=== PATIENT | male | born 1960 | race Caucasian/White ===

== ENCOUNTER 2020-06-23 18:42 | Inpatient (IN) | payer OTHER ==
[~2020-06-23 18:42] MED LIST: ONDANSETRON HCL INJ/PF 4 MG/2 ML SDV ONE; ROCURONIUM BROMIDE INJ 50 MG/5 ML VIAL IV ONE; SUCCINYLCHOLINE CHLORIDE INJ 200 MG/10 ML VIAL ONE
[2020-06-23] MEDS ORDERED: MORPHINE SULFATE 10 MG/ML INJ IV ONE (20:11)
[2020-06-23] MEDS ORDERED: NORMAL SALINE 1000 ML 1,000 ML IV ONE (20:11)
[2020-06-23] MEDS ORDERED: ONDANSETRON HCL INJ/PF 4 MG/2 ML SDV IV ONE (20:11)
--- NOTE | 2020-06-23 20:14 | ER Document Report ---
ED GI/ - General Chief Complaint: Vomiting Stated Complaint: ABDOMINAL PAIN/CHILLS/VOMITING/BACK PAIN Time Seen by Provider: 06/23/20 19:57 Mode of Arrival: Medic Information source: Patient Notes: Patient presents complaint of right lateral side pain. Patient states the pain radiates into the abdomen. Patient states that he has had nausea and vomiting times at least 6 episodes today. No diarrhea. Patient denies any fever. Patient denies any cough or urinary symptoms. Patient denies any significant medical history other does not go to a doctor regularly. - HPI Patient complains to provider of: Vomiting, Other - Lateral side pain. No: Diar alessandra, Dysuria, Flank pain, Testicular pain Onset: Yesterday Timing/Duration: Gradual, Worse Quality of pain: Other - Tight pressure Pain Level: 5 Location: Other - Lateral side Associated symptoms: Nausea, Vomiting. denies: Chest pain, Constipation, Diarrhea, Dysuria, Fever, Urinary hesitancy, Urinary frequency, Urinary retention, Urinary urgency Exacerbated by: Movement, Deep breathing Relieved by: Denies Similar symptoms previously: No Recently seen / treated by doctor: No - Related Data Allergies/Adverse Reactions: No Known Allergies Allergy (Unverified 06/23/20 20:59) Past Medical History - General Information source: Patient - Social History Smoking Status: Current Every Day Smoker Frequency of alcohol use: None Drug Abuse: None Occupation: None Family History: Reviewed & Not Pertinent Patient has homicidal ideation: No - Medical History Medical History: Negative Surgical Hx: Negative Review of Systems - Review of Systems Constitutional: No symptoms reported. denies: Fever EENT: No symptoms reported Cardiovascular: No symptoms reported. denies: Chest pain Respiratory: Hurts to breathe. denies: Cough Gastrointestinal: Abdominal pain - Right lateral side pain that radiates into abdomen, Nausea, Vomiting. denies: Diarrhea Genitourinary: No symptoms reported. denies: Dysuria, Flank pain, Hematuria Male Genitourinary: No symptoms reported Musculoskeletal: Back pain - Right lateral side tenderness Skin: No symptoms reported Hematologic/Lymphatic: No symptoms reported Neurological/Psychological: No symptoms reported Physical Exam - Vital signs Vitals: Temp Pulse Resp BP Pulse Ox 97.5 F 109 H 20 131/80 H 94 06/23/20 18:51 06/23/20 18:51 06/23/20 18:51 06/23/20 18:51 06/23/20 18:51 - Notes Notes: PHYSICAL EXAMINATION: GENERAL: Patient appears comfortable HEAD: Atraumatic, normocephalic. EYES: sclera anicteric, conjunctiva are normal. ENT: nares patent. Moist mucous membranes. NECK: Normal range of motion, supple without lymphadenopathy LUNGS: CTAB and equal. Patient with mild tachypnea. No wheezes rales or rhonchi. HEART: Tachycardia with normal rhythm without murmurs ABDOMEN: Right lateral side tenderness, abdomen soft, normal bowel sounds, no guarding. EXTREMITIES: Normal range of motion, no pitting edema. No cyanosis. BACK: Right lateral side tenderness, no midline tenderness, no step-off or deformity. No CVA tenderness NEUROLOGICAL: Cranial nerves grossly intact. Normal speech. PSYCH: Normal mood, normal affect. SKIN: Warm, Dry, normal turgor, no rashes or lesions noted Course - Re-evaluation Re-evalutation: 06/23/20 22:56 Received call from radiologist reporting that patient has a recently perforated appendix and that the appendix appears to abut the liver, radiologist specifically requests that this finding be reported to the surgeon. Call then placed to surgeon, Dr. Arita regarding patient presentation. Dr Arita states that he will be down to evaluate patient shortly. - Vital Signs Vital signs: Temp Pulse Resp BP Pulse Ox 98.5 F 118 H 20 147/80 H 93 06/24/20 00:05 06/24/20 00:05 06/24/20 00:05 06/24/20 00:05 06/24/20 00:05 - Laboratory Result Diagrams: 06/23/20 20:05 06/23/20 20:05 Laboratory results interpreted by me: 06/23/20 06/23/20 06/23/20 20:05 20:05 20:40 WBC 15.7 H Seg Neuts % (Manual) 92 H Lymphocytes % (Manual) 4 L Abs Neuts (Manual) 14.4 H Glucose 206 H Urine Protein 100 H Urine Ketones TRACE H Urine Blood SMALL H Urine Urobilinogen 2.0 H Ur Leukocyte Esterase LARGE H Labs- All tests 24 hr 06/23/20 06/23/20 06/23/20 20:05 20:05 20:40 WBC 15.7 H RBC 5.18 Hgb 17.0 Hct 50.3 MCV 97 MCH 32.9 MCHC 33.9 RDW 13.5 Plt Count 228 Lymph % (Auto) Not Reportable [place] % (Auto) Not Reportable Eos % (Auto) Not Reportable Baso % (Auto) Not Reportable Absolute Neuts (auto) Not Reportable Absolute Lymphs (auto) Not Reportable Absolute Monos (auto) Not Reportable Absolute Eos (auto) Not Reportable Absolute Basos (auto) Not Reportable Total Counted 100 Seg Neutrophils % Not Reportable Seg Neuts % (Manual) 92 H Lymphocytes % (Manual) 4 L Monocytes % (Manual) 4 Eosinophils % (Manual) 0 Basophils % (Manual) 0 Abs Neuts (Manual) 14.4 H Abs Lymphs (Manual) 0.6 Abs Monocytes (Manual) 0.6 Absolute Eos (Manual) 0.0 Abs Basophils (Manual) 0.0 Platelet Comment ADEQUATE RBC Morph Comment NORMO-CYTIC/CHROMIC Sodium 140.5 Potassium 3.8 Chloride 101 Carbon Dioxide 23 Anion Gap 17 BUN 19 Creatinine 0.95 Est GFR ( Amer) > 60 Est GFR (MDRD) Non-Af > 60 Glucose 206 H Calcium 10.0 Total Bilirubin 1.2 Direct Bilirubin 0.4 Neonat Total Bilirubin Not Reportable Neonat Direct Bilirubin Not Reportable Neonat Indirect Bili Not Reportable AST 31 ALT 27 Alkaline Phosphatase 88 Total Protein 7.8 Albumin 4.9 Lipase 41.8 Urine Color YELLOW Urine Appearance CLOUDY Urine pH 5.0 Ur Specific [place] 1.029 Urine Protein 100 H Urine Glucose (UA) NEGATIVE Urine Ketones TRACE H Urine Blood SMALL H Urine Nitrite NEGATIVE Urine Bilirubin NEGATIVE Urine Urobilinogen 2.0 H Ur Leukocyte Esterase LARGE H Urine WBC (Auto) 130 Urine RBC (Auto) 49 Urine Bacteria (Auto) TRACE Squamous Epi Cells Auto 6 Urine Mucus (Auto) OCC Urine Ascorbic Acid NEGATIVE - Diagnostic Test Radiology reviewed: Reports reviewed Discharge - Discharge Clinical Impression: Appendicitis Qualifiers: Appendicitis type: acute appendicitis Acute appendicitis type: with localized peritonitis Appendicitis gangrene presence: without gangrene Appendicitis perforation presence: with perforation Appendicitis abscess presence: without abscess Qualified Code(s): K35.32 - Acute appendicitis with perforation and localized peritonitis, without abscess Condition: Fair Disposition: ADMITTED INPATIENT Admitting Provider: Surgicalist Unit Admitted: Surgical Floor
[2020-06-23 20:37] LABS: HEMATOCRIT 50.3 % (37.9-51.0); MEAN CORPUSCULAR HEMOGLOBIN 32.9 pg (27.0-33.4); MEAN CORPUSCULAR HGB CONC 33.9 g/dL (32.0-36.0); MEAN CORPUSCULAR VOLUME 97 fl (80-97); PLATELET COUNT 228 10^3/uL (150-450); RED BLOOD COUNT 5.18 10^6/uL (4.35-5.55); RED CELL DISTRIBUTION WIDTH 13.5 % (11.5-14.0); WHITE BLOOD COUNT 15.7 10^3/uL (4.0-10.5)
[2020-06-23 20:48] LABS: ALBUMIN 4.9 g/dL (3.5-5.0); ALKALINE PHOSPHATASE 88 U/L (38-126); ANION GAP 17 (5-19); ASPARTATE AMINO TRANSFERASE 31 U/L (17-59); BILIRUBIN,DIRECT 0.4 mg/dL (0.0-0.4); BILIRUBIN,TOTAL 1.2 mg/dL (0.2-1.3); BLOOD UREA NITROGEN 19 mg/dL (7-20); CARBON DIOXIDE 23 mmol/L (22-30); CHLORIDE 101 mmol/L (98-107); GLUCOSE 206 mg/dL (75-110); POTASSIUM 3.8 mmol/L (3.6-5.0); TOTAL PROTEIN 7.8 g/dL (6.3-8.2)
[2020-06-23 21:05] LABS: ABSOLUTE LYMPHOCYTES# (MANUAL) 0.6 10^3/uL (0.5-4.7); ABSOLUTE MONOCYTES # (MANUAL) 0.6 10^3/uL (0.1-1.4); BASOPHILS % (MANUAL) 0 % (0-2); EOSINOPHILS % (MANUAL) 0 % (0-6); LYMPHOCYTES % (MANUAL) 4 % (13-45); MONOCYTES % (MANUAL) 4 % (3-13); SEGMENTED NEUTROPHILS % (MAN) 92 % (42-78); TOTAL CELLS COUNTED 100
[2020-06-23 21:06] LABS: PLATELET COMMENT ADEQUATE; RBC MORPHOLOGY COMMENT NORMO-CYTIC/CHROMIC
[2020-06-23] MEDS ORDERED: HYDROMORPHONE HCL INJ/PF 2 MG/ML AMPULE IV ONE (21:08)
--- NOTE | 2020-06-23 21:09 | RADIOLOGY REPORT (SQ) ---
CLINICAL INDICATION: r lat side pain. TECHNIQUE: A single portable AP view was obtained of the chest at 5 hours. COMPARISON: None. FINDINGS: The cardiomediastinal silhouette is normal. The lungs are of low volume. Platelike atelectasis at the bases.. No evidence of effusion or pneumothorax. The visualized bones are unremarkable. IMPRESSION: No evidence of active intrathoracic disease. Platelike atelectasis both lung bases. Lungs of low volume but otherwise grossly clear
[2020-06-23 21:16] LABS: APPEARANCE,URINE CLOUDY; BILIRUBIN,URINE NEGATIVE (NEGATIVE); GLUCOSE, URINE NEGATIVE (NEGATIVE); KETONES,URINE TRACE mg/dL (NEGATIVE); LEUKOCYTE ESTERASE,URINE LARGE (NEGATIVE); NITRITE,URINE NEGATIVE (NEGATIVE); PROTEIN,URINE 100 mg/dL (NEGATIVE); URINE SPECIFIC GRAVITY 1.029
[2020-06-23 21:18] LABS: COLOR,URINE YELLOW
[2020-06-23] MEDS ORDERED: CEFTRIAXONE 1 GM/D5W RTU 1 GM/50 ML RTUPB IV ONE (21:23)
--- NOTE | 2020-06-23 22:47 | RADIOLOGY REPORT (SQ) ---
EXAM DESCRIPTION: [facility]: CT ABDOMEN PELVIS WITH IV CONTRAST CLINICAL HISTORY: 59 years Male; R lat side pain, UTI; TECHNIQUE: CT of the abdomen and pelvis using intravenous contrast. All CT scans at this facility use dose modulation, iterative reconstruction, and/or weight based dosing when appropriate to reduce radiation dose to as low as reasonably achievable. COMPARISON: None. FINDINGS: Mild subsegmental atelectasis in both lower lobes. Abdomen: Stomach: No significant distention or surrounding edema. Liver: Minimal adjacent fluid. There is a trace pleural fluid in Morison's pouch. No focal lesion. No ductal distention. Gallbladder:Nondistended Pancreas:Within normal limits Spleen:Within normal limits Right kidney:No hydronephrosis. No focal lesion. Left kidney:No hydronephrosis. No focal lesion. Adrenal glands:Within normal limits Vascular structures: Mild scattered aortic calcification, without aneurysm or dissection. Pelvis: Small bowel: Several air-fluid levels but no significant small bowel distention. Appendix: Nondistended, 1.8 cm transverse diameter. There is an air-fluid level in the distended tip of the appendix. There is also adjacent edema. This is likely responsible for the perihepatic fluid/edema. There is a trace amount of extraluminal air, seen on axial image 39. Colon: There is a left inguinal hernia containing a long segment of the sigmoid colon. The defect is approximately 3 cm wide. Hernia sac extends approximately 8 cm craniocaudal. No proximal colonic distention. No free intraperitoneal fluid or air. Bones: No acute bone findings. Bladder: Unremarkable. No pelvic mass or adenopathy. IMPRESSION: 1. Acute ruptured appendicitis. No drainable abscess. Note that the appendix is posterior to the cecum and abuts the medial aspect of the inferior right hepatic lobe. 2. Left inguinal hernia containing a long segment of sigmoid colon, without obstruction.
[2020-06-23] MEDS ORDERED: PIPERACILLIN/TAZOBACTAM 3.375 GM VIAL IV ONE (22:56)
--- NOTE | 2020-06-23 23:46 | PDOC H&P ---
History of Present Illness Patient complains of: Abdominal pain History of Present Illness: SUDARSHAN HUTCHINS is a 59 year old male usual state of good health up until 2 days ago when he developed diffuse abdominal discomfort along with nausea and anorexia and some dry heaves. The following day the pain localized in the right lateral abdomen and has progressively worsened along with nausea vomiting. He has a longstanding history of left sided inguinal hernia but it has not been bothering him recently. He has had a right inguinal hernia repair in infancy. Patient denies any fever. Denies any prior history of this sort of pain. Patient does not have a regular doctor and he denies any known history of medical issues. Past Medical History Medical History: None Past Surgical History Past Surgical History: Reports: Herniorrhaphy Social History Smoking Status: Current Every Day Smoker Frequency of Alcohol Use: Occasional Hx Recreational Drug Use: No Hx Prescription Drug Abuse: No Family History Family History: Reviewed & Not Pertinent Parental Family History Reviewed: Yes Children Family History Reviewed: Yes Sibling(s) Family History Reviewed.: Yes Medication/Allergy Allergies/Adverse Reactions: No Known Allergies Allergy (Unverified 06/23/20 20:59) Physical Exam Vital Signs: Temp Pulse Resp BP Pulse Ox 98.8 F 116 H 16 135/72 H 93 06/23/20 21:41 06/23/20 21:41 06/23/20 21:41 06/23/20 21:41 06/23/20 21:41 Intake & Output 06/22/20 06/23/20 06/24/20 06:59 06:59 06:59 Intake Total 1050 Balance 1050 Weight 90.718 kg General appearance: PRESENT: mild distress Eye exam: PRESENT: conjunctiva pink Neck exam: PRESENT: other - Supple with no tenderness and no masses Respiratory exam: PRESENT: clear to auscultation quang Cardiovascular exam: PRESENT: tachycardia GI/Abdominal exam: PRESENT: other - Soft, mildly distended, focal tenderness to palpation along the entire right abdomen with guarding. Gentrourinary exam: PRESENT: other - Bilateral testicles are descended with no testicular masses. Left groin bulge that is mildly tender but partially reducible. No overlying skin changes. Extremities exam: PRESENT: other - No swelling and no tenderness Neurological exam: PRESENT: alert, awake Psychiatric exam: PRESENT: appropriate affect Skin exam: PRESENT: warm Results Laboratory Results: 06/23/20 20:05 06/23/20 20:05 06/23/20 06/23/20 06/23/20 20:05 20:05 20:40 WBC 15.7 H RBC 5.18 Hgb 17.0 Hct 50.3 MCV 97 MCH 32.9 MCHC 33.9 RDW 13.5 Plt Count 228 Seg Neutrophils % Not Reportable Sodium 140.5 Potassium 3.8 Chloride 101 Carbon Dioxide 23 Anion Gap 17 BUN 19 Creatinine 0.95 Est GFR ( Amer) > 60 Glucose 206 H Calcium 10.0 Total Bilirubin 1.2 AST 31 Alkaline Phosphatase 88 Total Protein 7.8 Albumin 4.9 Lipase 41.8 Urine Color YELLOW Urine Appearance CLOUDY Urine pH 5.0 Ur Specific [place] 1.029 Urine Protein 100 H Urine Glucose (UA) NEGATIVE Urine Ketones TRACE H Urine Blood SMALL H Urine Nitrite NEGATIVE Ur Leukocyte Esterase LARGE H Urine WBC (Auto) 130 Urine RBC (Auto) 49 Impressions: Chest X-Ray 06/23/20 20:11 IMPRESSION: No evidence of active intrathoracic disease. Platelike atelectasis both lung bases. Lungs of low volume but otherwise grossly clear Abdomen/Pelvis CT 06/23/20 21:22 IMPRESSION: 1. Acute ruptured appendicitis. No drainable abscess. Note that the appendix is posterior to the cecum and abuts the medial aspect of the inferior right hepatic lobe. 2. Left inguinal hernia containing a long segment of sigmoid colon, without obstruction. Assessment & Plan - Diagnosis (1) Appendicitis Qualifiers: Appendicitis type: acute appendicitis Acute appendicitis type: with localized peritonitis Appendicitis gangrene presence: without gangrene Jerry endicitis perforation presence: with perforation Appendicitis abscess pre sence: without abscess Qualified Code(s): K35.32 - Acute appendicitis with perforation and localized peritonitis, without abscess Is this a current diagnosis for this admission?: Yes Plan: CT scan consistent with perforated appendicitis. We will plan laparoscopic appendectomy possible open appendectomy. I have discussed with the patient risk and benefits of the surgery including risk of infection, bleeding, cardiopulmonary risks, mistaken diagnosis, bowel and ureteral injury, stump leak. Patient understands and agrees to proceed. In regards to his left inguinal hernia I do not think it is causing problems currently and it should be repaired after he has recovered from his appendicitis. Patient has peritoneal signs and he is tachycardic therefore I will proceed immediately to the operating room and not await a rapid COVID test result. Although I will obtain a rapid COVID test. Antibiotics have been given and additional fluid bolus has been ordered. I will obtain an EKG prior to the operation. - Time Anticipated Discharge Disposition: Home, Self Care Anticipated Discharge Timeframe: 4 days
[2020-06-24] MEDS ORDERED: BUPIVACAINE HCL 0.25 % INJ/PF (2.5 MG/1 ML) 30 ML VIAL ONE (00:18)
[2020-06-24] MEDS ORDERED: FENTANYL CITRATE INJ/PF 250 MCG/5 ML AMPULE ONE (00:20)
[2020-06-24] MEDS ORDERED: MIDAZOLAM 2 MG/2 ML INJ ONE ×2 (00:20→02:30)
[2020-06-24] MEDS ORDERED: PROPOFOL INJ 200 MG/20 ML VIAL IV ONE (00:21)
[2020-06-24] MEDS ORDERED: FENTANYL CITRATE INJ/PF 100 MCG/2 ML AMPUL IV PRN ×3 (01:25)
[2020-06-24] MEDS ORDERED: DIPHENHYDRAMINE HCL 50 MG/ML VIAL IV PRN ×2 (01:25→14:43)
[2020-06-24] MEDS ORDERED: MORPHINE SULFATE 10 MG/ML INJ IV PRN ×2 (01:25→03:07)
[2020-06-24] MEDS ORDERED: PROMETHAZINE HCL INJ 25 MG/1 ML VIAL IV PRN ×4 (01:25→14:43)
[2020-06-24] MEDS ORDERED: MEPERIDINE HCL/PF INJ 25 MG/1 ML DISP.SYRIN IV PRN ×2 (01:25→14:43)
[2020-06-24] MEDS ORDERED: ACETAMINOPHEN 1,000 MG/100 ML RTUPB IV ONE (01:35)
[2020-06-24] MEDS ORDERED: HYDROMORPHONE HCL INJ/PF 2 MG/ML AMPULE ONE (02:30)
[2020-06-24] MEDS ORDERED: DEXTROSE 40% GEL 15 GM TUBE PO PRN ×2 (03:07)
[2020-06-24] MEDS ORDERED: DEXTROSE 50%-WATER 25 GM/50 ML DISP.SYRIN IV PRN ×2 (03:07)
[2020-06-24] MEDS ORDERED: GLUCAGON,HUMAN RECOMB 1 MG INJ SUBCUT PRN (03:07)
[2020-06-24] MEDS ORDERED: MIDAZOLAM 2 MG/2 ML INJ IV PRN (03:07)
[2020-06-24] MEDS ORDERED: PIPERACILLIN/TAZOBACTAM 3.375 GM VIAL IV PRN (03:19)
[2020-06-24] MEDS ORDERED: PHARMACY COMMUNICATION ORDER MC NR (03:30)
--- NOTE | 2020-06-24 03:36 | Operative Report ---
Operative Report DATE OF SURGERY: 06/24/20 PREOPERATIVE DIAGNOSIS: Ruptured appendicitis. POSTOPERATIVE DIAGNOSIS: Ruptured appendicitis with peritonitis OPERATION: Attempted laparoscopic appendectomy, converted to open appendectomy with abdominal cavity washout. SURGEON: ORLANDO MORGAN ANESTHESIA: GA TISSUE REMOVED OR ALTERED: Appendix. Periappendiceal fluid sent for Gram stain and culture. COMPLICATIONS: None ESTIMATED BLOOD LOSS: 50 cc INTRAOPERATIVE FINDINGS: Pus throughout the right peritoneal cavity. Perfo ration of the appendix with the fecal contamination. PROCEDURE: Informed consent was obtained. Patient was brought to the operating room and placed on the operating room table in the supine position. After satisfactory induction of general anesthesia patient's abdomen was prepped and draped in usual sterile fashion. A supraumbilical midline incision was made and disse ction carried down through the fascia and the peritoneal cavity was entered. Ocampo trocar was inserted and pneumoperitoneum produced with good patient toleration. Laparoscopic view demonstrated copious amount of turbid purulent fluid in the peritoneal cavity mostly on the right side in the perihepatic region. Anatomy was very indistinct due to the film of the inflammatory changes overlying the right colon and the transverse colon and the surrounding regions. The cecum appeared to be located near the right upper quadrant therefore trocar positions were modified placing a 5 mm trocar in the upper mid abdomen and another 5 mm trocar placed in the right lower abdomen thus triangulating the region that was needed for dissection. The purulent fluid was aspirated and gentle blunt dissection was performed trying to tease off the tissues to better define the anatomy. In doing so I saw a small opening with fecal contamination. Anatomy was indistinct and at this point I could not tell whether this opening was in the colon or appendix because I could not define the appendix. With this finding and the inability to define the anatomy laparoscopically, I converted the procedure to a open surgery. Trochars were removed and the Ocampo trocar site incision was extended cephalad creating a upper midline incision. Wound protractor was used during the case. After conversion the anatomy was still very indistinct. The hepatic flexure of the colon was mobilized as was the cecum and in doing so anatomy was clarified. The appendix was firmly adhered to the colon with a perforation at the midportion of the appendix with the appendix laying adjacent to the inferior edge of the right lobe of the liver. Using combination of sharp and blunt dissection the appendix was able to be dissected away from the surrounding structures and the base of the appendix was clearly identified and the appendix was taken flush with the cecum using a Endo SHABANA stapling device. The base of the appendix appeared devoid of inflammatory changes other than the inflammatory peel that covered most of the bowel in this region. The stump closure site appeared secure and healthy. The appendix was then mobilized toward the tip taking great care to avoid injury to the adjacent colon. The mesoappendix was indistinct and was taken with clips, again taking great care to avoid injury to the adjacent colon. There was no evidence of the colon injury nor colon perforation. The duodenum was visualized and protected during the dissection. The appendix was passed off the table. Some of the periappendiceal fluid was swab for Gram stain and culture. The operative field including the entire peritoneal cavity was copiously irrigated and the irrigant aspirated out. Irrigation fluid was perfectly clear at the end of the case. A Oleg-Mendoza drain was placed into the right hepatic region and brought out through a separate stab incision in the right upper quadrant and sutured in place. Sponge needle instrument counts were all correct. Hemostasis appeared to be excellent. An NG tube was placed and position verified by palpation. Fascia was closed with a running PDS suture. Skin incisions were closed with lisa. Of note the skin wounds were copiously irrigated at the end of the case. Marcaine was injected at the surgical wounds. Patient tolerated procedure well with no apparent complications and was taken to the intensive care unit.
[2020-06-24] MEDS: NORMAL SALINE 1000 ML 1,000 ML IV PRN ×2 (05:43→13:05)
[2020-06-24] MEDS: PIPERACILLIN SODIUM/TAZOBACTAM 3.375 GM in NORMAL SALINE 100 ML IV SCH ×4 (05:46→23:59)
--- NOTE | 2020-06-24 06:00 | CRITICAL CARE ADMISSION REPORT ---
HPI Date:: 06/24/20 Time:: 03:38 Reason for ICU Reason:: Perforated appendix Admission Date/Time & PCP: Admission Date/Time: 06/23/20 23:36 Primary Care Provider: HPI: SUDARSHAN HUTCHINS is a 59 year old male usual state of good health up until 2 days ago when he developed diffuse abdominal discomfort along with nausea and anorexia and some dry heaves. The following day the pain localized in the right lateral abdomen and has progressively worsened along with nausea vomiting. He has a longstanding history of left sided inguinal hernia but it has not been bothering him recently. He has had a right inguinal hernia repair in infancy. Patient denies any fever. Denies any prior history of this sort of pain. Arely ent does not have a regular doctor and he denies any known history of medical issues. - Diagnosis/Plan (1) Appendicitis Qualifiers: Appendicitis type: acute appendicitis Acute appendicitis type: with localized peritonitis Appendicitis gangrene presence: without gangrene Jerry endicitis perforation presence: with perforation Appendicitis abscess pre sence: without abscess Qualified Code(s): K35.32 - Acute appendicitis with perforation and localized peritonitis, without abscess Is this a current diagnosis for this admission?: Yes Plan: s/p appendectomy continue abx per surgery for peritonitis Volume resuscitate Past Surgical History Past Surgical History: Reports: Herniorrhaphy Social/Family History - Social History Smoking Status: Current Every Day Smoker Frequency of Alcohol Use: Occasional Hx Recreational Drug Use: No Hx Prescription Drug Abuse: No - Medication/Allergies Allergies/Adverse Reactions: No Known Allergies Allergy (Unverified 06/23/20 20:59) Physical Exam Vital Signs: Temp Pulse Resp BP Pulse Ox 98.5 F 116 H 16 135/83 H 93 06/24/20 00:05 06/24/20 03:58 06/24/20 03:58 06/24/20 03:58 06/24/20 04:16 Intake & Output 06/22/20 06/23/20 06/24/20 06:59 06:59 06:59 Intake Total 6450 Output Total 300 Balance 6150 Weight 90.718 kg Weight/Height Weight 90.718 kg Height 5 ft 6 in General appearance: PRESENT: no acute distress Head exam: PRESENT: atraumatic, normocephalic Eye exam: PRESENT: PERRLA Mouth exam: PRESENT: moist, neck supple Neck exam: PRESENT: full ROM Respiratory exam: PRESENT: clear to auscultation quang Cardiovascular exam: PRESENT: tachycardia Pulses: PRESENT: normal radial pulses Vascular exam: PRESENT: normal capillary refill GI/Abdominal exam: PRESENT: distended, guarding, tenderness Extremities exam: PRESENT: full ROM Musculoskeletal exam: PRESENT: full ROM Neurological exam: PRESENT: other - sedated Tubes/Lines: PRESENT: Endotracheal Tube, Nasogastic Tube Laboratory/Radiographs Laboratory Results: 06/23/20 20:05 06/23/20 20:05 06/23/20 06/23/20 06/23/20 20:05 20:05 20:40 WBC 15.7 H RBC 5.18 Hgb 17.0 Hct 50.3 MCV 97 MCH 32.9 MCHC 33.9 RDW 13.5 Plt Count 228 Seg Neutrophils % Not Reportable Sodium 140.5 Potassium 3.8 Chloride 101 Carbon Dioxide 23 Anion Gap 17 BUN 19 Creatinine 0.95 Est GFR ( Amer) > 60 Glucose 206 H Calcium 10.0 Total Bilirubin 1.2 AST 31 Alkaline Phosphatase 88 Total Protein 7.8 Albumin 4.9 Lipase 41.8 Urine Color YELLOW Urine Appearance CLOUDY Urine pH 5.0 Ur Specific [place] 1.029 Urine Protein 100 H Urine Glucose (UA) NEGATIVE Urine Ketones TRACE H Urine Blood SMALL H Urine Nitrite NEGATIVE Ur Leukocyte Esterase LARGE H Urine WBC (Auto) 130 Urine RBC (Auto) 49 Impressions: Chest X-Ray 06/23/20 20:11 IMPRESSION: No evidence of active intrathoracic disease. Platelike atelectasis both lung bases. Lungs of low volume but otherwise grossly clear Abdomen/Pelvis CT 06/23/20 21:22 IMPRESSION: 1. Acute ruptured appendicitis. No drainable abscess. Note that the appendix is posterior to the cecum and abuts the medial aspect of the inferior right hepatic lobe. 2. Left inguinal hernia containing a long segment of sigmoid colon, without obstruction. All labs, radiographs, diagnostic studies and EKGs were personally reviewed: Yes In addition, reports of radiographic and diagnostic studies were read: Yes Critical Time Critical Time (minutes): 60 -: The care of a critically ill patient is dynamic. This note represents a static moment in the admission process. Orders and treatments may be given simultaneous ly and urgently, and time is not entry level account representative of the treatment process. This patient requires Critical Care secondary to life threatening organ or limb dysfunction. Without Critical Care services, the patient is at risk for increased mortality and morbidity.
[2020-06-24 06:58] LABS: HEMATOCRIT 41.3 % (37.9-51.0); MEAN CORPUSCULAR HEMOGLOBIN 33.4 pg (27.0-33.4); MEAN CORPUSCULAR HGB CONC 34.7 g/dL (32.0-36.0); MEAN CORPUSCULAR VOLUME 96 fl (80-97); PLATELET COUNT 136 10^3/uL (150-450); RED BLOOD COUNT 4.29 10^6/uL (4.35-5.55); RED CELL DISTRIBUTION WIDTH 13.4 % (11.5-14.0); WHITE BLOOD COUNT 11.7 10^3/uL (4.0-10.5)
[2020-06-24 07:00] LABS: HEMOGLOBIN 14.3 g/dL (13.5-17.0)
[2020-06-24] MEDS ORDERED: HYDROCODONE/ACETAMINOPHEN 5-325 MG TABLET PO PRN (07:11)
[2020-06-24 07:40] LABS: ABSOLUTE LYMPHOCYTES# (MANUAL) 0.4 10^3/uL (0.5-4.7); ABSOLUTE MONOCYTES # (MANUAL) 0.4 10^3/uL (0.1-1.4); BAND NEUTROPHILS % (MANUAL) 1 % (3-5); BASOPHILS % (MANUAL) 0 % (0-2); EOSINOPHILS % (MANUAL) 0 % (0-6); LYMPHOCYTES % (MANUAL) 3 % (13-45); MONOCYTES % (MANUAL) 3 % (3-13); PLATELET COMMENT DECREASED; SEGMENTED NEUTROPHILS % (MAN) 93 % (42-78); TOTAL CELLS COUNTED 100
[2020-06-24 07:41] LABS: HYPOCHROMASIA SLIGHT; POLYCHROMASIA SLIGHT
[2020-06-24] MEDS: ENOXAPARIN SODIUM INJ 40 MG/0.4 ML DISP.SYRIN SUBCUT SCH (09:18)
[2020-06-24 10:06] LABS: ANION GAP 10 (5-19); BLOOD UREA NITROGEN 17 mg/dL (7-20); CALCIUM 7.9 mg/dL (8.4-10.2); CARBON DIOXIDE 19 mmol/L (22-30); CHLORIDE 109 mmol/L (98-107); GLUCOSE 152 mg/dL (75-110); POTASSIUM 4.6 mmol/L (3.6-5.0)
--- NOTE | 2020-06-24 11:49 | PDOC CRITICAL CARE PROG REPORT ---
General Date:: 06/24/20 ICU Day:: 1 Ventilator Day:: 1 Hospital Day:: 1 Resuscitation Status: Full Code Events in the past 12 to 24 Hours:: PI: SUDARSHAN HUTCHINS is a 59 year old male usual state of good health up until 2 days ago when he developed diffuse abdominal discomfort along with nausea and anorexia and some dry heaves. The following day the pain localized in the right lateral abdomen and has progressively worsened along with nausea vomiting. He has a longstanding history of left sided inguinal hernia but it has not been bothering him recently. He has had a right inguinal hernia repair in infancy. Patient denies any fever. Denies any prior history of this sort of pain. Patient does not have a regular doctor and he denies any known history of medical issues. 06/24 The patient was extubated in the ICU and is dong well. No resp. complaints. Some mild tendernessin the lower R quadrant. He has NGT in place. Respiratory and cardivascualr status stable Labs unremarkable. the patient should be able to be be transferred to the medical floor at this time Reason for ICU Addmission:: Perforated appendix Physical Exam Vital Signs: Temp Pulse Resp BP Pulse Ox 98.6 F 89 18 105/77 96 06/24/20 10:00 06/24/20 10:57 06/24/20 10:10 06/24/20 10:10 06/24/20 10:10 Intake & Output 06/23/20 06/24/20 06/25/20 06:59 06:59 06:59 Intake Total 6450 Output Total 600 330 Balance 5850 -330 Weight 90.2 kg Weight/Height Weight 90.2 kg Height 5 ft 6 in Laboratory/Radiographs Laboratory Results: 06/24/20 06:25 06/24/20 09:05 06/23/20 06/23/20 06/23/20 20:05 20:05 20:40 WBC 15.7 H RBC 5.18 Hgb 17.0 Hct 50.3 MCV 97 MCH 32.9 MCHC 33.9 RDW 13.5 Plt Count 228 Seg Neutrophils % Not Reportable Sodium 140.5 Potassium 3.8 Chloride 101 Carbon Dioxide 23 Anion Gap 17 BUN 19 Creatinine 0.95 Est GFR ( Amer) > 60 Est GFR (Non-Af Amer) Glucose 206 H Calcium 10.0 Total Bilirubin 1.2 AST 31 Alkaline Phosphatase 88 Total Protein 7.8 Albumin 4.9 Lipase 41.8 Urine Color YELLOW Urine Appearance CLOUDY Urine pH 5.0 Ur Specific [place] 1.029 Urine Protein 100 H Urine Glucose (UA) NEGATIVE Urine Ketones TRACE H Urine Blood SMALL H Urine Nitrite NEGATIVE Ur Leukocyte Esterase LARGE H Urine WBC (Auto) 130 Urine RBC (Auto) 49 06/24/20 06/24/20 06/24/20 06:25 06:25 09:05 WBC 11.7 H RBC 4.29 L Hgb 14.3 D Hct 41.3 MCV 96 MCH 33.4 MCHC 34.7 RDW 13.4 Plt Count 136 L Seg Neutrophils % Not Reportable Sodium Cancelled 138.3 Potassium Cancelled 4.6 Chloride Cancelled 109 H Carbon Dioxide Cancelled 19 L Anion Gap Cancelled 10 BUN Cancelled 17 Creatinine Cancelled 0.78 Est GFR ( Amer) Cancelled > 60 Est GFR (Non-Af Amer) Cancelled Glucose Cancelled 152 H Calcium Cancelled 7.9 L Total Bilirubin AST Alkaline Phosphatase Total Protein Albumin Lipase Urine Color Urine Appearance Urine pH Ur Specific [place] Urine Protein Urine Glucose (UA) Urine Ketones Urine Blood Urine Nitrite Ur Leukocyte Esterase Urine WBC (Auto) Urine RBC (Auto) Impressions: Chest X-Ray 06/23/20 20:11 IMPRESSION: No evidence of active intrathoracic disease. Platelike atelectasis both lung bases. Lungs of low volume but otherwise grossly clear Abdomen/Pelvis CT 06/23/20 21:22 IMPRESSION: 1. Acute ruptured appendicitis. No drainable abscess. Note that the appendix is posterior to the cecum and abuts the medial aspect of the inferior right hepatic lobe. 2. Left inguinal hernia containing a long segment of sigmoid colon, without obstruction. Assessment and Plan - Diagnosis (1) Appendicitis Qualifiers: Appendicitis type: acute appendicitis Acute appendicitis type: with localized peritonitis Appendicitis gangrene presence: without gangrene Appendicitis perforation presence: with perforation Appendicitis abscess presence: without abscess Qualified Code(s): K35.32 - Acute appendicitis with perforation and localized peritonitis, without abscess Is this a current diagnosis for this admission?: Yes Plan: CT scan consistent with perforated appendicitis. We will plan laparoscopic appendectomy possible open appendectomy. I have discussed with the patient risk and benefits of the surgery including risk of infection, bleeding, car diopulmonary risks, mistaken diagnosis, bowel and ureteral injury, stump leak. Patient understands and agrees to proceed. In regards to his left inguinal hernia I do not think it is causing problems currently and it should be repaired after he has recovered from his appendicitis. Patient has peritoneal signs and he is tachycardic therefore I will proceed immediately to the operating room and not await a rapid COVID test result. Although I will obtain a rapid COVID test. Antibiotics have been given and additional fluid bolus has been ordered. I will obtain an EKG prior to the operation. 06/24 The patient is now post -op. he is doing well and hemodynamically stable. [facility] gpo [facility] medical floor. Critical Time Critical Time (minutes): 15 Level of Care: ICU -: 1. The care of a critical patient is a dynamic process. This note is a claim representative synopsis but static in nature. The timeframe for treatments given in order is not necessarily the actual time these treatments may have been done. 2. This patient requires critical care secondary to ongoing requirements for therapy not offered or safe outside the critical care environment. Transfer to a lower level of care will result in altered life or limb morbidity and mortality. 3. Multidisciplinary rounds completed. 4. ABCDE bundle addressed.
[2020-06-24] MEDS: ONDANSETRON HCL INJ/PF 4 MG/2 ML SDV IV PRN (14:46)
[2020-06-24] MEDS: HYDROMORPHONE HCL INJ/PF 2 MG/ML AMPULE IV PRN ×2 (14:46→19:44)
--- NOTE | 2020-06-24 21:33 | EKG REPORT ---
SEVERITY:- ABNORMAL ECG - SINUS TACHYCARDIA CONSIDER RIGHT VENTRICULAR HYPERTROPHY NONSPECIFIC T ABNORMALITIES, INFERIOR LEADS : Confirmed by: Carley Yin MD 24-Jun-2020 21:32:04
[2020-06-25] MEDS: ONDANSETRON HCL INJ/PF 4 MG/2 ML SDV IV PRN ×2 (00:05→10:22)
[2020-06-25] MEDS: PIPERACILLIN SODIUM/TAZOBACTAM 3.375 GM in NORMAL SALINE 100 ML IV SCH ×4 (05:22→22:59)
[2020-06-25] MEDS: NORMAL SALINE 1000 ML 1,000 ML IV PRN ×2 (05:23→17:28)
[2020-06-25 05:55] LABS: ABSOLUTE LYMPHOCYTES (AUTO) 0.7 10^3/uL (0.5-4.7); ABSOLUTE MONOCYTES (AUTO) 0.5 10^3/uL (0.1-1.4); ABSOLUTE NEUT (AUTO) 8.7 10^3/uL (1.7-8.2); BASOPHILS % (AUTO) 0.1 % (0-2); HEMATOCRIT 39.9 % (37.9-51.0); HEMOGLOBIN 13.6 g/dL (13.5-17.0); MEAN CORPUSCULAR HEMOGLOBIN 32.9 pg (27.0-33.4); MEAN CORPUSCULAR VOLUME 97 fl (80-97); MONOCYTES % (AUTO) 5.1 % (3-13); PLATELET COUNT 149 10^3/uL (150-450); RED BLOOD COUNT 4.13 10^6/uL (4.35-5.55); RED CELL DISTRIBUTION WIDTH 13.4 % (11.5-14.0); SEGMENTED NEUTROPHILS % (AUTO) 87.8 % (42-78); TOTAL CELLS COUNTED % (AUTO) 100 %; WHITE BLOOD COUNT 9.9 10^3/uL (4.0-10.5)
[2020-06-25 06:11] LABS: ANION GAP 9 (5-19); BLOOD UREA NITROGEN 17 mg/dL (7-20); CALCIUM 8.1 mg/dL (8.4-10.2); CARBON DIOXIDE 23 mmol/L (22-30); CHLORIDE 107 mmol/L (98-107); GLUCOSE 124 mg/dL (75-110); POTASSIUM 4.2 mmol/L (3.6-5.0)
[2020-06-25] MEDS: ENOXAPARIN SODIUM INJ 40 MG/0.4 ML DISP.SYRIN SUBCUT SCH (10:22)
[2020-06-25] MEDS: FAMOTIDINE INJ/PF 20 MG/2 ML SDV IV SCH ×2 (10:22→22:00)
[2020-06-25] MEDS: HYDROMORPHONE HCL INJ/PF 2 MG/ML AMPULE IV PRN ×2 (10:41→17:32)
--- NOTE | 2020-06-25 12:32 | PDOC PROGRESS REPORT ---
Subjective Progress Note for:: 06/25/20 Reason For Visit: PERFORATED APPENDICITIS WITH SEPSIS NG tube and Garcia catheter still in. Pain adequately controlled Physical Exam Vital Signs: Temp Pulse Resp BP Pulse Ox 97.5 F 94 22 H 142/76 H 92 06/25/20 07:19 06/25/20 07:19 06/25/20 07:19 06/25/20 07:19 06/25/20 07:19 Intake & Output 06/24/20 06/25/20 06/26/20 06:59 06:59 06:59 Intake Total 6450 2000 Output Total 600 1510 Balance 5850 490 Weight 90.2 kg 92.4 kg General appearance: PRESENT: no acute distress GI/Abdominal exam: PRESENT: other - Midline dressing dry and intact; serosanguineous fluid and drain; abdomen minimally tender no peritoneal signs. Results Laboratory Results: 06/25/20 05:01 06/25/20 05:01 06/25/20 06/25/20 05:01 05:01 WBC 9.9 RBC 4.13 L Hgb 13.6 Hct 39.9 MCV 97 MCH 32.9 MCHC 34.0 RDW 13.4 Plt Count 149 L Seg Neutrophils % 87.8 H Sodium 139.0 Potassium 4.2 Chloride 107 Carbon Dioxide 23 Anion Gap 9 BUN 17 Creatinine 0.78 Est GFR ( Amer) > 60 Glucose 124 H Calcium 8.1 L 06/24/20 02:08 Appendix Gram Stain - Final Impressions: Chest X-Ray 06/23/20 20:11 IMPRESSION: No evidence of active intrathoracic disease. Platelike atelectasis both lung bases. Lungs of low volume but otherwise grossly clear Abdomen/Pelvis CT 06/23/20 21:22 IMPRESSION: 1. Acute ruptured appendicitis. No drainable abscess. Note that the appendix is posterior to the cecum and abuts the medial aspect of the inferior right hepatic lobe. 2. Left inguinal hernia containing a long segment of sigmoid colon, without obstruction. Assessment & Plan - Diagnosis (1) Smoker Is this a current diagnosis for this admission?: Yes (2) Appendicitis Qualifiers: Appendicitis type: acute appendicitis Acute appendicitis type: with localized peritonitis Appendicitis gangrene presence: without gangrene Appendicitis perforation presence: with perforation Appendicitis abscess presence: without abscess Qualified Code(s): K35.32 - Acute appendicitis with perforation and localized peritonitis, without abscess Is this a current diagnosis for this admission?: Yes Plan: Impression: Patient is 1 day status post laparoscopic conversion to open appendectomy for acute appendicitis with perforation, drain placement, doing well, no early postoperative complication Recommendations: 1. Will discontinue Garcia catheter and get patient up out of bed 2. NG tube will be clamped; will remove if patient able to tolerate; will leave drain in place 3. Encourage pulmonary toilet. - Time Time Spent: 30 to 50 Minutes Critical Time spent with patient: Less than 15 minutes Medications reviewed and adjusted accordingly: Yes Anticipated Discharge Disposition: Home, Self Care Anticipated Discharge Timeframe: within 72 hours
[2020-06-26] MEDS: PIPERACILLIN SODIUM/TAZOBACTAM 3.375 GM in NORMAL SALINE 100 ML IV SCH ×3 (05:40→18:14)
[2020-06-26] MEDS: HYDROMORPHONE HCL INJ/PF 2 MG/ML AMPULE IV PRN ×3 (07:41→19:42)
[2020-06-26] MEDS: FAMOTIDINE INJ/PF 20 MG/2 ML SDV IV SCH ×2 (11:41→22:15)
[2020-06-26] MEDS: NORMAL SALINE 1000 ML 1,000 ML IV PRN (11:41)
[2020-06-26] MEDS: ENOXAPARIN SODIUM INJ 40 MG/0.4 ML DISP.SYRIN SUBCUT SCH (13:16)
--- NOTE | 2020-06-26 16:13 | PDOC PROGRESS REPORT ---
Subjective Progress Note for:: 06/26/20 Reason For Visit: PERFORATED APPENDICITIS WITH SEPSIS Patient sitting in chair, has ambulated, voiding, tolerated nasogastric tube removal; pain controlled Physical Exam Vital Signs: Temp Pulse Resp BP Pulse Ox 98.0 F 80 19 130/85 H 90 L 06/26/20 12:07 06/26/20 12:07 06/26/20 12:07 06/26/20 12:07 06/26/20 12:07 Intake & Output 06/25/20 06/26/20 06/27/20 06:59 06:59 06:59 Intake Total 1999 2129 Output Total 1510 995 Balance 490 1135 Weight 92.4 kg 92.9 kg General appearance: PRESENT: no acute distress GI/Abdominal exam: PRESENT: other - Moves well approximately, no drainage; drain still in place with serosanguineous discharge Results Laboratory Results: 06/25/20 05:01 06/25/20 05:01 06/24/20 02:08 Appendix Gram Stain - Final 06/24/20 02:08 Appendix Wound Culture - Final Escherichia Coli Group C Beta Streptococcus Peptostreptococcus Species Clostridium Sp.not Perfringens 06/23/20 20:40 Clean Catch Midstream Urine Culture - Final Mixed Urogenital Rosio Impressions: Chest X-Ray 06/23/20 20:11 IMPRESSION: No evidence of active intrathoracic disease. Platelike atelectasis both lung bases. Lungs of low volume but otherwise grossly clear Abdomen/Pelvis CT 06/23/20 21:22 IMPRESSION: 1. Acute ruptured appendicitis. No drainable abscess. Note that the appendix is posterior to the cecum and abuts the medial aspect of the inferior right hepatic lobe. 2. Left inguinal hernia containing a long segment of sigmoid colon, without obstruction. Assessment & Plan - Diagnosis (1) Smoker Is this a current diagnosis for this admission?: Yes (2) Appendicitis Qualifiers: Appendicitis type: acute appendicitis Acute appendicitis type: with localized peritonitis Appendicitis gangrene presence: without gangrene Appendicitis perforation presence: with perforation Appendicitis abscess presence: without abscess Qualified Code(s): K35.32 - Acute appendicitis with perforation and localized peritonitis, without abscess Is this a current diagnosis for this admission?: Yes Plan: Impression: Patient is 2 and half days status post laparoscopic converted to open appendectomy, doing well, GI function returning, voiding, has 1 drain left; growing from his peritoneal cavity E. coli, Peptostreptococcus, Streptococcus and C. difficile Plan: 1. Start clear liquids 2. Ambulate out of bed.hiking 3. Continue IV antibiotics. - Time Time Spent: 30 to 50 Minutes Critical Time spent with patient: Less than 15 minutes Medications reviewed and adjusted accordingly: Yes Anticipated Discharge Disposition: Home, Self Care Anticipated Discharge Timeframe: within 48 hours
[2020-06-26] MEDS: ONDANSETRON HCL INJ/PF 4 MG/2 ML SDV IV PRN (18:17)
[2020-06-26] MEDS ORDERED: MELATONIN 5 MG TABLET PO PRN (19:55)
[2020-06-27] MEDS: HYDROMORPHONE HCL INJ/PF 2 MG/ML AMPULE IV PRN ×3 (00:53→20:15)
[2020-06-27] MEDS: PIPERACILLIN SODIUM/TAZOBACTAM 3.375 GM in NORMAL SALINE 100 ML IV SCH ×4 (00:55→17:17)
[2020-06-27] MEDS: NORMAL SALINE 1000 ML 1,000 ML IV PRN ×2 (01:00→17:23)
[2020-06-27] MEDS: ONDANSETRON HCL INJ/PF 4 MG/2 ML SDV IV PRN ×3 (05:44→18:29)
[2020-06-27] MEDS: ENOXAPARIN SODIUM INJ 40 MG/0.4 ML DISP.SYRIN SUBCUT SCH (09:41)
[2020-06-27] MEDS: FAMOTIDINE INJ/PF 20 MG/2 ML SDV IV SCH ×2 (09:41→22:00)
--- NOTE | 2020-06-27 15:13 | RADIOLOGY REPORT (SQ) ---
EXAM DESCRIPTION: KUB/ABDOMEN (SINGLE VIEW) IMAGES COMPLETED DATE/TIME: 06/27/2020 2:46 pm REASON FOR STUDY: nausea/vomiting COMPARISON: CT of the abdomen pelvis with contrast from 06/23/2020. NUMBER OF VIEWS: One view. TECHNIQUE: An AP supine view of the abdomen was obtained. LIMITATIONS: None. FINDINGS: BOWEL GAS PATTERN: There are multiple air-filled dilated loops of small bowel that measure up to 4 cm in diameter. There is also air within the colon and rectum. There is no pneumatosis or p ortal venous gas. CALCIFICATIONS: None. SOFT TISSUES: No abnormality. HARDWARE: SPIKE drain in the right lower quadrant and surgical cutaneous lisa that project over the r ight lower quadrant and midline abdomen. BONES: No acute fracture. OTHER: No other finding. IMPRESSION: Multiple air-filled dilated loops of small bowel that measure up to 4 cm in diameter co ncerning for a postoperative ileus. Continued radiographic follow-up is recommended. TECHNICAL DOCUMENTATION: JOB ID: [id number] 2010 [employer]- All Rights Reserved Reading location - IP/workstation name: [email or web address]
--- NOTE | 2020-06-27 15:59 | PDOC PROGRESS REPORT ---
Subjective Progress Note for:: 06/27/20 Reason For Visit: PERFORATED APPENDICITIS WITH SEPSIS Physical Exam Vital Signs: Temp Pulse Resp BP Pulse Ox 97.9 F 90 18 154/93 H 91 L 06/27/20 08:15 06/27/20 07:23 06/27/20 07:23 06/27/20 07:23 06/27/20 07:23 Intake & Output 06/26/20 06/27/20 06/28/20 06:59 06:59 06:59 Intake Total 2130 2030 Output Total 995 1185 450 Balance 1135 845 -450 Weight 92.9 kg 93.5 kg Results Laboratory Results: 06/25/20 05:01 06/25/20 05:01 Impressions: Chest X-Ray 06/23/20 20:11 IMPRESSION: No evidence of active intrathoracic disease. Platelike atelectasis both lung bases. Lungs of low volume but otherwise grossly clear Abdomen/Pelvis CT 06/23/20 21:22 IMPRESSION: 1. Acute ruptured appendicitis. No drainable abscess. Note that the appendix is posterior to the cecum and abuts the medial aspect of the inferior right hepatic lobe. 2. Left inguinal hernia containing a long segment of sigmoid colon, without obstruction. KUB X-Ray 06/27/20 00:00 IMPRESSION: Multiple air-filled dilated loops of small bowel that measure up to 4 cm in diameter concerning for a postoperative ileus. Continued radiographic follow-up is recommended. Assessment & Plan - Diagnosis (1) Perforated appendicitis Is this a current diagnosis for this admission?: Yes (2) Ileus following gastrointestinal surgery Is this a current diagnosis for this admission?: Yes - Time Anticipated Discharge Disposition: Home, Self Care Anticipated Discharge Timeframe: unknown - Plan Summary Plan Summary: 59-year-old male status post ex lap for perforated appendicitis. The patient reports nausea and vomiting today. His abdomen is distended. I have obtained a KUB showing distended loops of small bowel, with air in the colon and rectum. I believe the patient is experiencing postoperative ileus, related to his perforated acute appendicitis. He reports passing a small amount of flatus. He has not had a bowel movement yet. I have encouraged him to minimize his oral intake. Currently, he is afebrile. Continue IV antibiotics and IV fluids. Ambulate in the hallway. Repeat lab work tomorrow.
[2020-06-27] MEDS: HYDROCODONE/ACETAMINOPHEN 5-325 MG TABLET NG PRN (17:23)
[2020-06-27] MEDS: MAG HYDROX/AL HYDROX/SIMETH SUSP 30 ML UDCUP PO ONE (21:30)
[2020-06-27] MEDS: MELATONIN 5 MG TABLET NG PRN (21:59)
[2020-06-27] MEDS: DIPHENHYDRAMINE HCL 50 MG/ML VIAL IV SCH (21:59)
[2020-06-28] MEDS: PIPERACILLIN SODIUM/TAZOBACTAM 3.375 GM in NORMAL SALINE 100 ML IV SCH ×4 (00:51→20:18)
[2020-06-28] MEDS: MAG HYDROX/AL HYDROX/SIMETH SUSP 30 ML UDCUP PO ONE (04:43)
[2020-06-28] MEDS: ONDANSETRON HCL INJ/PF 4 MG/2 ML SDV IV PRN ×2 (04:43→22:23)
[2020-06-28] MEDS: HYDROMORPHONE HCL INJ/PF 2 MG/ML AMPULE IV PRN ×2 (04:43→22:23)
[2020-06-28 05:11] LABS: ANION GAP 7 (5-19); BLOOD UREA NITROGEN 16 mg/dL (7-20); CALCIUM 8.2 mg/dL (8.4-10.2); CARBON DIOXIDE 25 mmol/L (22-30); CHLORIDE 108 mmol/L (98-107); GLUCOSE 117 mg/dL (75-110); POTASSIUM 3.3 mmol/L (3.6-5.0)
[2020-06-28 05:38] LABS: HEMATOCRIT 35.5 % (37.9-51.0); HEMOGLOBIN 12.5 g/dL (13.5-17.0); MEAN CORPUSCULAR HEMOGLOBIN 33.2 pg (27.0-33.4); MEAN CORPUSCULAR HGB CONC 35.3 g/dL (32.0-36.0); MEAN CORPUSCULAR VOLUME 94 fl (80-97); PLATELET COUNT 167 10^3/uL (150-450); RED BLOOD COUNT 3.77 10^6/uL (4.35-5.55); RED CELL DISTRIBUTION WIDTH 12.8 % (11.5-14.0); WHITE BLOOD COUNT 6.6 10^3/uL (4.0-10.5)
[2020-06-28 05:57] LABS: ABSOLUTE LYMPHOCYTES# (MANUAL) 1.6 10^3/uL (0.5-4.7); ABSOLUTE MONOCYTES # (MANUAL) 0.3 10^3/uL (0.1-1.4); BASOPHILS % (MANUAL) 0 % (0-2); EOSINOPHILS % (MANUAL) 0 % (0-6); LYMPHOCYTES % (MANUAL) 24 % (13-45); MONOCYTES % (MANUAL) 4 % (3-13); SEGMENTED NEUTROPHILS % (MAN) 72 % (42-78); TOTAL CELLS COUNTED 100
[2020-06-28 05:58] LABS: PLATELET COMMENT ADEQUATE; RBC MORPHOLOGY COMMENT NORMO-CYTIC/CHROMIC
[2020-06-28] MEDS: ENOXAPARIN SODIUM INJ 40 MG/0.4 ML DISP.SYRIN SUBCUT SCH (10:10)
[2020-06-28] MEDS: FAMOTIDINE INJ/PF 20 MG/2 ML SDV IV SCH ×2 (10:11→22:24)
[2020-06-28] MEDS: NORMAL SALINE 1000 ML 1,000 ML IV PRN (10:17)
--- NOTE | 2020-06-28 11:05 | PDOC PROGRESS REPORT ---
Subjective Progress Note for:: 06/28/20 Subjective:: feels ok wants to eat despite vomiting yesterday Reason For Visit: PERFORATED APPENDICITIS WITH SEPSIS Physical Exam Vital Signs: Temp Pulse Resp BP Pulse Ox 98.2 F 74 20 150/82 H 91 L 06/28/20 07:25 06/28/20 07:25 06/28/20 07:25 06/28/20 07:25 06/28/20 07:25 Intake & Output 06/27/20 06/28/20 06/29/20 06:59 06:59 06:59 Intake Total 2030 3318 Output Total 1185 1320 Balance 845 1997 Weight 93.5 kg 91.8 kg General appearance: PRESENT: no acute distress Head exam: PRESENT: normocephalic Ear exam: PRESENT: normal external ear exam Mouth exam: PRESENT: dry mucosa Neck exam: PRESENT: full ROM Respiratory exam: PRESENT: clear to auscultation quang Cardiovascular exam: PRESENT: RRR Pulses: PRESENT: normal radial pulses, normal femoral pulses, normal dorsalis pedis pul Vascular exam: PRESENT: normal capillary refill Breast: PRESENT: Normal GI/Abdominal exam: PRESENT: soft, other - wound clean dry. winston serous drainage Rectal exam: PRESENT: deferred Extremities exam: PRESENT: full ROM Musculoskeletal exam: PRESENT: full ROM Neurological exam: PRESENT: alert, awake, oriented to person, oriented to place Psychiatric exam: PRESENT: appropriate affect Skin exam: PRESENT: dry Results Laboratory Results: 06/28/20 04:31 06/28/20 04:31 06/28/20 06/28/20 04:31 04:31 WBC 6.6 RBC 3.77 L Hgb 12.5 L Hct 35.5 L MCV 94 MCH 33.2 MCHC 35.3 RDW 12.8 Plt Count 167 Seg Neutrophils % Not Reportable Sodium 140.1 Potassium 3.3 L Chloride 108 H Carbon Dioxide 25 Anion Gap 7 BUN 16 Creatinine 0.74 Est GFR ( Amer) > 60 Glucose 117 H Calcium 8.2 L Impressions: Chest X-Ray 06/23/20 20:11 IMPRESSION: No evidence of active intrathoracic disease. Platelike atelectasis both lung bases. Lungs of low volume but otherwise grossly clear Abdomen/Pelvis CT 06/23/20 21:22 IMPRESSION: 1. Acute ruptured appendicitis. No drainable abscess. Note that the appendix is posterior to the cecum and abuts the medial aspect of the inferior right hepatic lobe. 2. Left inguinal hernia containing a long segment of sigmoid colon, without obstruction. KUB X-Ray 06/27/20 00:00 IMPRESSION: Multiple air-filled dilated loops of small bowel that measure up to 4 cm in diameter concerning for a postoperative ileus. Continued radiographic follow-up is recommended. Assessment & Plan - Time Anticipated Discharge Disposition: Home, Self Care Anticipated Discharge Timeframe: unk - Plan Summary Plan Summary: pt s/p open appendectomy for ruptured appendicitis still with ileus howver ashly clear fluids plan cont current treatment course
[2020-06-28] MEDS: POTASSI CL 20 MEQ/50 ML RIDER 20 MEQ/50 ML RTUPB IV SCH ×2 (14:54→17:44)
[2020-06-28] MEDS: DIPHENHYDRAMINE HCL 50 MG/ML VIAL IV SCH (22:23)
[2020-06-28] MEDS: MELATONIN 5 MG TABLET NG PRN (22:24)
[2020-06-29] MEDS: PIPERACILLIN SODIUM/TAZOBACTAM 3.375 GM in NORMAL SALINE 100 ML IV SCH ×5 (00:06→23:47)
[2020-06-29] MEDS: NORMAL SALINE 1000 ML 1,000 ML IV PRN ×2 (02:14→18:09)
[2020-06-29] MEDS: ENOXAPARIN SODIUM INJ 40 MG/0.4 ML DISP.SYRIN SUBCUT SCH (09:54)
[2020-06-29] MEDS: FAMOTIDINE INJ/PF 20 MG/2 ML SDV IV SCH ×2 (09:54→22:00)
[2020-06-29] MEDS: HYDROCODONE/ACETAMINOPHEN 5-325 MG TABLET NG PRN (18:15)
[2020-06-29] MEDS: DIPHENHYDRAMINE HCL 50 MG/ML VIAL IV SCH (22:00)
[2020-06-29] MEDS: MELATONIN 5 MG TABLET NG PRN (22:01)
[2020-06-30] MEDS: PIPERACILLIN SODIUM/TAZOBACTAM 3.375 GM in NORMAL SALINE 100 ML IV SCH ×2 (05:29→11:10)
[2020-06-30] MEDS ORDERED: POTASSIUM CHLORIDE 20 MEQ PACKET PO ONE ×2 (10:00→11:35)
--- NOTE | 2020-06-30 10:00 | PDOC PROGRESS REPORT ---
Subjective Progress Note for:: 06/30/20 Subjective:: No complaints, patient feeling well, tolerating p.o. well, bowel movement today with normal stools Reason For Visit: PERFORATED APPENDICITIS WITH SEPSIS Physical Exam Vital Signs: Temp Pulse Resp BP Pulse Ox 97.9 F 85 17 122/69 93 06/30/20 08:12 06/30/20 08:00 06/30/20 08:00 06/30/20 08:00 06/30/20 08:00 Intake & Output 06/29/20 06/30/20 07/01/20 06:59 06:59 06:59 Intake Total 3470 1380 Output Total 1326 200 Balance 2144 1180 Weight 99.1 kg 99.7 kg General appearance: PRESENT: no acute distress, obese Respiratory exam: PRESENT: clear to auscultation quang Cardiovascular exam: PRESENT: RRR GI/Abdominal exam: PRESENT: normal bowel sounds, soft, other - Midline incision clean, dry, and intact Results Laboratory Results: 06/28/20 04:31 06/28/20 04:31 Impressions: Chest X-Ray 06/23/20 20:11 IMPRESSION: No evidence of active intrathoracic disease. Platelike atelectasis both lung bases. Lungs of low volume but otherwise grossly clear Abdomen/Pelvis CT 06/23/20 21:22 IMPRESSION: 1. Acute ruptured appendicitis. No drainable abscess. Note that the appendix is posterior to the cecum and abuts the medial aspect of the inferior right hepatic lobe. 2. Left inguinal hernia containing a long segment of sigmoid colon, without obstruction. KUB X-Ray 06/27/20 00:00 IMPRESSION: Multiple air-filled dilated loops of small bowel that measure up to 4 cm in diameter concerning for a postoperative ileus. Continued radiographic follow-up is recommended. Assessment & Plan - Diagnosis (1) Appendicitis Qualifiers: Appendicitis type: acute appendicitis Acute appendicitis type: with locali zed peritonitis Appendicitis gangrene presence: without gangrene Appendicitis perforation presence: with perforation Appendicitis abscess presence: without abscess Qualified Code(s): K35.32 - Acute appendicitis with perforation and localized peritonitis, without abscess - Time Anticipated Discharge Disposition: Home, Self Care Anticipated Discharge Timeframe: Today - Plan Summary Plan Summary: Assessment: Postoperative day #6 following open appendectomy for a perforated appendicitis Patient doing well, patient tolerating p.o. well Vital signs stable Physical exam unremarkable Ej drain large field with clear fluid, last 24-hour output about 125 mL Drain fluid negative for urine leak as the creatinine is only 0.7 Remaining blood work within normal limits except for low potassium 3.3 Plan: k 40 mg p.o. x1 now Home today Follow-up with surgery office in 1 week Ej drain bulb routine care, empty bulb daily and record amount of drainage Bring output record to the office at the time of office appointment Regular diet Patient to eat 1 banana twice a day for the next 3 days to replace his potassium Activities as tolerated, no heavy straining or lifting more than 10 pounds for about 3 months Sponge bath only; patient can shower if he covers the Ej drain site with large towel and plastic bag No wound care needed Tylenol/Motrin or Aleve as needed for pain Absolutely no smoking Patient to buy [id number] Nicorette patches or gums for his nicotine addiction
--- NOTE | 2020-06-30 10:05 | PDOC DISCHARGE SUMMARY ---
General - Admit/Disc Date/PCP Admission Date/Primary Care Provider: 06/23/20 23:36 Discharge Date: 06/30/20 - Discharge Diagnosis Final Diagnosis: Acute appendicitis with perforation - Additional Information Resuscitation Status: Full Code Discharge Diet: Regular Discharge Activity: Activity As Tolerated, No Lifting Over 10 Pounds, No Lifting/Push/Pulling, No tub bath, Walk Frequently, Other - sponge bath only; patient can shower if he protects the Ej drain site with towel and plastic bag Referrals: [facility] [Provider Group] - 07/08/20 10:45 am (APPT WILL BE WITH DR. KEARNS) Prescriptions: Amoxicillin/Potassium Clav [Augmentin 875-125 Tablet] 1 tab PO BID #20 tab Home Medications: Amoxicillin/Potassium Clav [Augmentin 875-125 Tablet] 1 tab PO BID #20 tab 06/30/20 Melatonin [Melatonin 5 mg Tablet] 5 mg NG HSP PRN tablet 06/30/20 Additional Information: Follow-up with surgery office in 1 week Ej drain bulb routine care, empty bulb daily and record amount of drainage Bring output record to the office at the time of office appointment Regular diet Patient to eat 1 banana twice a day for the next 3 days to replace his potassium Activities as tolerated, no heavy straining or lifting more than 10 pounds for about 3 months Sponge bath only; patient can shower if he covers the Ej drain site with large towel and plastic bag No wound care needed Tylenol/Motrin or Aleve as needed for pain Augmentin 875 mg p.o. twice daily for 10 days Absolutely no smoking Patient to buy [id number] Nicorette patches or gums for his nicotine addiction History of Present Illiness History of Present Illness: SUDARSHAN HUTCHINS is a 59 year old male Physical Exam Vital Signs: Temp Pulse Resp BP Pulse Ox 97.9 F 85 17 122/69 93 06/30/20 08:12 06/30/20 08:00 06/30/20 08:00 06/30/20 08:00 06/30/20 08:00 Intake & Output 06/29/20 06/30/20 07/01/20 06:59 06:59 06:59 Intake Total 3470 1380 Output Total 1326 200 Balance 2144 1180 Weight 99.1 kg 99.7 kg 99.7 kg Results Laboratory Results: WBC 6.6 10^3/uL (4.0-10.5) 06/28/20 04:31 RBC 3.77 10^6/uL (4.35-5.55) L 06/28/20 04:31 Hgb 12.5 g/dL (13.5-17.0) L 06/28/20 04:31 Hct 35.5 % (37.9-51.0) L 06/28/20 04:31 MCV 94 fl (80-97) 06/28/20 04:31 MCH 33.2 pg (27.0-33.4) 06/28/20 04:31 MCHC 35.3 g/dL (32.0-36.0) 06/28/20 04:31 RDW 12.8 % (11.5-14.0) 06/28/20 04:31 Plt Count 167 10^3/uL (150-450) 06/28/20 04:31 Lymph % (Auto) Not Reportable 06/28/20 04:31 [place] % (Auto) Not Reportable 06/28/20 04:31 Eos % (Auto) Not Reportable 06/28/20 04:31 Baso % (Auto) Not Reportable 06/28/20 04:31 Absolute Neuts (auto) Not Reportable 06/28/20 04:31 Absolute Lymphs (auto) Not Reportable 06/28/20 04:31 Absolute Monos (auto) Not Reportable 06/28/20 04:31 Absolute Eos (auto) Not Reportable 06/28/20 04:31 Absolute Basos (auto) Not Reportable 06/28/20 04:31 Total Counted 100 06/28/20 04:31 Seg Neutrophils % Not Reportable 06/28/20 04:31 Seg Neuts % (Manual) 72 % (42-78) 06/28/20 04:31 Band Neutrophils % 1 % (3-5) L 06/24/20 06:25 Lymphocytes % (Manual) 24 % (13-45) 06/28/20 04:31 Monocytes % (Manual) 4 % (3-13) 06/28/20 04:31 Eosinophils % (Manual) 0 % (0-6) 06/28/20 04:31 Basophils % (Manual) 0 % (0-2) 06/28/20 04:31 Abs Neuts (Manual) 4.8 10^3/uL (1.7-8.2) 06/28/20 04:31 Abs Lymphs (Manual) 1.6 10^3/uL (0.5-4.7) 06/28/20 04:31 Abs Monocytes (Manual) 0.3 10^3/uL (0.1-1.4) 06/28/20 04:31 Absolute Eos (Manual) 0.0 10^3/uL (0.0-0.6) 06/28/20 04:31 Abs Basophils (Manual) 0.0 10^3/uL (0.0-0.2) 06/28/20 04:31 Platelet Comment ADEQUATE 06/28/20 04:31 Polychromasia SLIGHT 06/24/20 06:25 Hypochromasia SLIGHT 06/24/20 06:25 RBC Morph Comment NORMO-CYTIC/CHROMIC 06/28/20 04:31 Sodium 140.1 mmol/L (137-145) 06/28/20 04:31 Potassium 3.3 mmol/L (3.6-5.0) L 06/28/20 04:31 Chloride 108 mmol/L (98-107) H 06/28/20 04:31 Carbon Dioxide 25 mmol/L (22-30) 06/28/20 04:31 Anion Gap 7 (5-19) 06/28/20 04:31 BUN 16 mg/dL (7-20) 06/28/20 04:31 Creatinine 0.74 mg/dL (0.52-1.25) 06/28/20 04:31 Est GFR ( Amer) > 60 (>60) 06/28/20 04:31 Est GFR (Non-Af Amer) Cancelled 06/24/20 06:25 Est GFR (MDRD) Non-Af > 60 (>60) 06/28/20 04:31 Glucose 117 mg/dL (75-110) H 06/28/20 04:31 POC Glucose 102 mg/dL (70-110) 06/26/20 12:09 Calcium 8.2 mg/dL (8.4-10.2) L 06/28/20 04:31 Total Bilirubin 1.2 mg/dL (0.2-1.3) 06/23/20 20:05 Direct Bilirubin 0.4 mg/dL (0.0-0.4) 06/23/20 20:05 Neonat Total Bilirubin Not Reportable 06/23/20 20:05 Neonat Direct Bilirubin Not Reportable 06/23/20 20:05 Neonat Indirect Bili Not Reportable 06/23/20 20:05 AST 31 U/L (17-59) 06/23/20 20:05 ALT 27 U/L (<50) 06/23/20 20:05 Alkaline Phosphatase 88 U/L (38-126) 06/23/20 20:05 Total Protein 7.8 g/dL (6.3-8.2) 06/23/20 20:05 Albumin 4.9 g/dL (3.5-5.0) 06/23/20 20:05 Lipase 41.8 U/L (23-300) 06/23/20 20:05 EGFR Cancelled 06/24/20 06:25 Urine Color YELLOW 06/23/20 20:40 Urine Appearance CLOUDY 06/23/20 20:40 Urine pH 5.0 (5.0-9.0) 06/23/20 20:40 Ur Specific [place] 1.029 06/23/20 20:40 Urine Protein 100 mg/dL (NEGATIVE) H 06/23/20 20:40 Urine Glucose (UA) NEGATIVE mg/dL (NEGATIVE) 06/23/20 20:40 Urine Ketones TRACE mg/dL (NEGATIVE) H 06/23/20 20:40 Urine Blood SMALL (NEGATIVE) H 06/23/20 20:40 Urine Nitrite NEGATIVE (NEGATIVE) 06/23/20 20:40 Urine Bilirubin NEGATIVE (NEGATIVE) 06/23/20 20:40 Urine Urobilinogen 2.0 mg/dL (<2.0) H 06/23/20 20:40 Ur Leukocyte Esterase LARGE (NEGATIVE) H 06/23/20 20:40 Urine WBC (Auto) 130 /HPF 06/23/20 20:40 Urine RBC (Auto) 49 /HPF 06/23/20 20:40 Urine Bacteria (Auto) TRACE /HPF 06/23/20 20:40 Squamous Epi Cells Auto 6 /HPF 06/23/20 20:40 Urine Mucus (Auto) OCC /LPF 06/23/20 20:40 Urine Ascorbic Acid NEGATIVE (NEGATIVE) 06/23/20 20:40 SARS-CoV-2 (PCR) NEGATIVE (NEGATIVE) 06/23/20 23:35 Impressions: Chest X-Ray 06/23/20 20:11 IMPRESSION: No evidence of active intrathoracic disease. Platelike atelectasis both lung bases. Lungs of low volume but otherwise grossly clear Abdomen/Pelvis CT 06/23/20 21:22 IMPRESSION: 1. Acute ruptured appendicitis. No drainable abscess. Note that the appendix is posterior to the cecum and abuts the medial aspect of the inferior right hepatic lobe. 2. Left inguinal hernia containing a long segment of sigmoid colon, without obstruction. KUB X-Ray 06/27/20 00:00 IMPRESSION: Multiple air-filled dilated loops of small bowel that measure up to 4 cm in diameter concerning for a postoperative ileus. Continued radiographic follow-up is recommended.
[2020-06-30] MEDS: ENOXAPARIN SODIUM INJ 40 MG/0.4 ML DISP.SYRIN SUBCUT SCH (11:07)
[2020-06-30 12:15] VITALS: BP 122/69
[2020-06-30] MEDS: FAMOTIDINE INJ/PF 20 MG/2 ML SDV IV SCH (12:21)
[2020-06-30] MEDS ORDERED: INFLUENZA QUAD (6MOS+) 2020-21 VAC 0.5 ML SYR IM ONE (12:30)
== END 2020-06-30 12:52 | disposition home or self-care (01) | DRG 339 ==
LOC: ER 18:42 → EH 23:36 → ICU 06-24 03:39 → 4N 06-24 15:56
PROVIDERS: ADMIT Surgery; ATTEND Surgery
PROC: 0WJG4ZZ Inspection of Peritoneal Cavity, Percutaneous Endoscopic Approach (ICD-10-PCS; 2020-06-24)
PROC: 5A1935Z Respiratory Ventilation, Less than 24 Consecutive Hours (ICD-10-PCS; 2020-06-24)
PROC: 0DTJ0ZZ Resection of Appendix, Open Approach (ICD-10-PCS; principal; 2020-06-24 00:04)
PROC: 3E02340 Introduction of Influenza Vaccine into Muscle, Percutaneous Approach (ICD-10-PCS; 2020-06-30)
DX: K35.32 Acute appendicitis with perforation, localized peritonitis, and gangrene, without abscess (principal); K56.7 Ileus, unspecified; B96.20 Unspecified Escherichia coli [E. coli] as the cause of diseases classified elsewhere; B95.1 Streptococcus, group B, as the cause of diseases classified elsewhere; F17.210 Nicotine dependence, cigarettes, uncomplicated; Z03.818 Encounter for observation for suspected exposure to other biological agents ruled out; Z23 Encounter for immunization
CPT/HCPCS: 36415; 71045; 74018; 74177; 80048; 80053; 81001; 82962; 83690; 840; 85025; 87070; 87075; 87077; 87086; 87186; 87205; 87635; 88304; 90686; 93005; 93010; 94002; 94799; 96361; 96365; 96367; 96375; 99140; 99285; 99291; 99292; C1758; C9803; J0131; J0330; J0696; J1170; J1200; J1650; J2250; J2270; J2405; J2543; J2704; J3010; J3480; J3490; J7030; J7050; S0028